=== PATIENT | male | born 1950 | race Caucasian/White ===

== ENCOUNTER 2023-02-04 10:01 | Outpatient (CLI) | payer OTHER, SELFPAY ==
--- NOTE | 2023-02-04 10:13 | FL_ITS ---
WS: [id number] Modified barium swallow, 02/05/2023 Clinical Data: Other dysphagia Comparison: None. Fluoroscopy time: 1min [id number] # of spot films: 2 Findings: The patient initiated swallowing but there was premature spillage and minimal oral residue. There is also decreased laryngeal excursion and cricopharyngeal relaxation. Minimal residue was noted but it c leared normally. There is trace of penetration but no aspiration. The patient swallowed the barium ta blet without hesitation and proceeded normally into the stomach. Impression: 1. Minimal oral residue and premature h. 2. Decreased laryngeal excursion and cricopharyngeal relaxation. 3. Minimal hypopharyngeal residue which cleared 4. Trace of penetration but no aspiration.
== END 2023-02-04 10:02 | disposition home or self-care (01) ==
PROVIDERS: PCP Emergency Medicine Emergency Medical Services; Visit Provider Emergency Medicine Emergency Medical Services
DX: R13.19 Other dysphagia (principal)
CPT/HCPCS: 74230; 92611

== ENCOUNTER 2024-05-16 20:00 | Outpatient (CLI) | payer OTHER, SELFPAY | END 2024-05-16 20:01 | disposition home or self-care (01) | LOC: SLEEP 22:57 | PROVIDERS: PCP Emergency Medicine Emergency Medical Services; Visit Provider Nurse Practitioner Family | DX: G47.33 Obstructive sleep apnea (adult) (pediatric) (principal); Z99.89 Dependence on other enabling machines and devices | CPT/HCPCS: 95811 ==

== ENCOUNTER 2025-05-09 14:58 | Outpatient (CLI) | payer OTHER, SELFPAY ==
--- NOTE | 2025-05-09 15:07 | CT_ITS ---
WS: [id number] LDCT LUNG CANCER SCREENING TECHNIQUE: Noncontrast CT of the chest with coronal and sagittal reformatted images. CLINICAL INFORMATION: SMOKER WITH 50+ PACK YEARS COMPARISON: None. DLP: 87.55 mGy.cm DIvol: Mean CTDIvol: 2.10 (mGy) All CT scans at [facility] use at least one of these dose optimization techniques: automated exposure control; mA and/or kV adjustment per patient size (includes targeted exams where dose is matched to clinical indication); or iterative reconstruction. FINDINGS: Shallow inspiration. Elevation hemidiaphragm. Subsegmental atelectasis RIGHT lower lobe. 3 mm noncalcified nodule RIGHT upper lobe. Small nodule RIGHT upper lobe posteriorly. Bronchiectasis RIGHT middle lobe. Bronchiectasis lower lobe with subsegmental atelectasis. Pleural-based nodule RIGHT lower lobe laterally. Small bilateral perifissural nodules. Aortic calcification. Coronary calcification. No mediastinal or hilar lymphadenopathy. No axillary lymphadenopathy. Tiny esophageal hernia. Fatty atrophy of the pancreas. Small RIGHT adrenal nodule measuring 10 mm. LEFT adrenal gland is normal. Moderate thoracic kyphosis. Hypertrophic changes thoracic spine. CT/CT lung screening [id number] IMPRESSION: LUNG-RADS: 2-Benign Appearance or Behavior FOLLOW UP: 12 Month: Continue annual screening with LDCT
== END 2025-05-09 14:59 | disposition home or self-care (01) ==
LOC: RAD 14:59
PROVIDERS: PCP Family Medicine Geriatric Medicine; Visit Provider Family Medicine Geriatric Medicine
DX: Z87.891 Personal history of nicotine dependence (principal); J98.11 Atelectasis; R91.8 Other nonspecific abnormal finding of lung field; J47.9 Bronchiectasis, uncomplicated; I70.0 Atherosclerosis of aorta; I25.10 Atherosclerotic heart disease of native coronary artery without angina pectoris; K44.9 Diaphragmatic hernia without obstruction or gangrene; M40.204 Unspecified kyphosis, thoracic region
CPT/HCPCS: 71271